=== PATIENT | female | born 1990 | race Caucasian/White ===

== ENCOUNTER 2017-07-12 15:25 | Emergency (ER) | payer OTHER ==
[~2017-07-12] VITALS: Ht 162.6 cm; Wt 67.0 kg
[~2017-07-12 15:25] MED LIST: FERR-43 PO; FOLI-43 PO; PREN-88 PO
[2017-07-12] MEDS ORDERED: LIDOCAINE HCL 1% 20ML VIAL (Pyxis) INJ MC ONE (18:30)
[2017-07-12] MEDS ORDERED: TETANUS, DIPHTHERIA, PERTUSSIS VAC/PF 0.5ML (>7YR OLD) IM ONE (18:30)
[2017-07-12 19:49] VITALS: BP 123/56
== END 2017-07-12 19:51 | disposition home or self-care (01) ==
LOC: ER 15:25
DX: L03.011 Cellulitis of right finger (principal); Z23 Encounter for immunization
CPT/HCPCS: 10060; 90471; 90715; 99283; J3490; Z7610